=== PATIENT | male | born 1995 | race Caucasian/White ===

== ENCOUNTER 2023-04-21 12:34 | Emergency (ER) | payer OTHER, SELFPAY ==
[2023-04-21 12:45] VITALS: BP 166/101; PULSE 81; RESP 18; TEMP 36.6; O2SAT 100; BMI 16.7
--- NOTE | 2023-04-21 12:48 | ED_ITS ---
HPI - Abdominal Pain General: Chief Complaint: Urogenital-Male Stated Complaint: right sided abdominal pain Time Seen by Provider: 04/21/23 12:41 Source: patient Mode of arrival: ambulatory History of Present Illness: 27-year-old male presents emergency room complaint of abdominal pain. He refers most of the pain to the right flank. He was seen last week and had a CT done showed a kidney stone on the right they gave him Flomax he thinks he recalls being told it was 3 mm in size he thought he had passed it because of pain and sees so he stopped the Flomax his nose began to have pain again. No hematuria no dysuria urgency or frequency. No fever sweats or chills MD elicited complaint: abdominal pain Pertinent past history: kidney stones Onset (ago): minute(s) Pain Consistency: intermittent Location: R flank Severity: mild Quality: sharp Exacerbating factors: nothing Relieving factors: nothing Associated Symptoms: Denies anorexia, belching, bloating, change in bowel habits, change in stool character, chills, coffee ground emesis, constipation, GI cramping, diarrhea, dyspepsia, dysuria, excessive flatus, fever(s), heartburn, hematochezia, hematuria, hematemesis, fecal incontinence, loose stools, melena, nausea, poor appetite, syncope and vomiting Review of Systems Const: Denies: fever(s) or chills Card: Denies: chest pain or syncope Resp: Denies: dyspnea GI: Reports: abdominal pain (Right flank pain); Denies: nausea, vomiting, hematemesis, coffee ground emesis, heartburn, diarrhea, constipation, bloating, GI cramping, belching, excessive flatus, fecal incontinence, change in bowel habits, change in stool character, hematochezia or melena : Reports: flank pain (Right); Denies: dysuria, urinary frequency, urinary urgency or hematuria Musc: Denies: neck pain or back pain Skin/Breast: Denies: rash Physical Exam Const: GENERAL APPEARANCE: cooperative and comfortable ORIENTATION/CONSCIOUSNESS: Yes awake, Yes oriented to person, Yes oriented to place and Yes oriented to time HENMT: COMMON NORMALS: normocephalic, atraumatic and hearing grossly normal bilaterally HEAD & SCALP: normocephalic and atraumatic Resp: COMMON NORMALS: normal respiratory effort, No retractions, No use of accessory muscles and clear to auscultation bilaterally AUSCULTATION: clear to auscultation bilaterally Cardio: COMMON NORMALS: regular rate, regular rhythm and No murmurs present (Cardio) RATE: regular rate RHYTHM: regular rhythm GI: COMMON NORMALS: Soft to palpation and No hepatosplenomegaly present AUSCULTATION: Yes normoactive bowel sounds PALPATION: Yes Soft to palpation, No Tenderness to palpation present (GI), No Guarding due to palpation present (GI) and Yes No hepatosplenomegaly present : BLADDER/KIDNEY EXAM: Yes CVA tenderness Back/Pelvis: GENERAL BACK: Yes CVA tenderness CVA tenderness: right Extremity: COMMON NORMALS: normal to inspection, capillary refill normal, no clubbing, cyanosis or edema, no calf tenderness and no pedal edema Neuro: SENSORIUM/ORIENTATION: Yes oriented to person, Yes oriented to place and Yes oriented to time Skin: COMMON NORMALS: no rashes or lesions noted GENERAL SKIN EXAM: no rashes or lesions noted Course Vital Signs: Vital signs: Vital Signs Temperature 97.8 F 04/21/23 12:45 Pulse Rate 82 04/21/23 15:04 Respiratory Rate 18 04/21/23 12:45 Blood Pressure 116/75 04/21/23 15:04 Pulse Oximetry 93 04/21/23 15:04 Oxygen Delivery Me thod Room Air 04/21/23 12:45 MDM - Abdominal Pain Medical Decision Making Patient reporting he is a same sensation as before this dose KUB there is question very low in the pelvis adjacent bladder looks like it may be the stone. He also has a fair amount of constipation. We will have him return to the [facility] strain the urine. Recheck with urology. We will have appointment made through case management for follow-up with urology. Return if worsens. Differential Diagnosis Likely calculus of kidney and constipation Medical Records I reviewed the patient's medical records. Lab Data I reviewed the patient's lab results. 04/21/23 13:05 04/21/23 13:05 Labs/Radiology: Radiology Impressions KUB X-Ray 04/21/23 13:09 IMPRESSION: 1. Probable constipation. 2. Additional details as above. Laboratory Results WBC 6.71 10^3/uL (3.29-11.43) 04/21/23 13:05 RBC 4.65 10^6/uL (3.85-5.65) 04/21/23 13:05 Hgb 15.10 g/dL (11.27-16.99) 04/21/23 13:05 Hct 44.3 % (37-53) 04/21/23 13:05 MCV 95.3 fl (82-101) 04/21/23 13:05 MCH 32.5 pg (27-33) 04/21/23 13:05 MCHC 34.1 g/dL (30-55) 04/21/23 13:05 RDW 12.0 % (12.1-15.1) L 04/21/23 13:05 Plt Count 248 10^3/cmm (157-399) 04/21/23 13:05 MPV 9.0 fL (7.4-10.4) 04/21/23 13:05 Neut % (Auto) 64.7 % 04/21/23 13:05 Lymph % (Auto) 20.1 % 04/21/23 13:05 [place] % (Auto) 13.3 % 04/21/23 13:05 Eos % (Auto) 0.9 % 04/21/23 13:05 Baso % (Auto) 0.9 % 04/21/23 13:05 Neut # (Auto) 4.34 10^3/uL (1.8-7.7) 04/21/23 13:05 Lymph # (Auto) 1.4 10^3/uL (0.8-4.8) 04/21/23 13:05 [place] # (Auto) 0.9 10^3/uL (0.2-0.9) 04/21/23 13:05 Eos # (Auto) 0.1 10^3/uL (0.0-0.8) 04/21/23 13:05 Baso # (Auto) 0.1 10^3/uL (0.0-0.1) 04/21/23 13:05 Nucleated RBC % (auto) 0 % 04/21/23 13:05 Nucleated RBCs # 0.0 /100WBC 04/21/23 13:05 Sodium 141 mmol/L (136-145) 04/21/23 13:05 Potassium 3.8 mmol/L (3.5-5.1) 04/21/23 13:05 Chloride 103 mmol/L (98-107) 04/21/23 13:05 Carbon Dioxide 27 mmol/L (22-29) 04/21/23 13:05 Anion Gap 14.8 (5-19) 04/21/23 13:05 BUN 16 mg/dL (6-20) 04/21/23 13:05 Creatinine 1.0 mg/dL (0.7-1.2) 04/21/23 13:05 GFR Calculation 88.3 mL/min (90-130) L 04/21/23 13:05 Glucose 106 mg/dL (65-115) 04/21/23 13:05 Calculated Osmolality 294 mOsm/kg (285-295) 04/21/23 13:05 Calcium 9.9 mg/dL (8.5-10.5) 04/21/23 13:05 Total Bilirubin 1.0 mg/dL (0.15-1.2) 04/21/23 13:05 AST 19 U/L (0-40) 04/21/23 13:05 ALT 15 U/L (0-41) 04/21/23 13:05 Alkaline Phosphatase 79 U/L (40-130) 04/21/23 13:05 Total Protein 7.8 g/dL (6.6-8.7) 04/21/23 13:05 Albumin 4.8 g/dL (3.5-5.2) 04/21/23 13:05 Globulin 3.0 g/dL (1.3-4.6) 04/21/23 13:05 Lipase 76 U/L (13-60) H 04/21/23 13:05 Urine Color Yellow (Yellow) 04/21/23 13:43 Urine Appearance Cloudy (CLEAR) A 04/21/23 13:43 Urine pH 8 (5-7) H 04/21/23 13:43 Ur Specific [place] 1.015 (1.005-1.030) 04/21/23 13:43 Urine Protein Neg (Negative) 04/21/23 13:43 Urine Glucose (UA) Norm (Normal) 04/21/23 13:43 Urine Ketones Negative (Negative) 04/21/23 13:43 Urine Blood Neg (Negative) 04/21/23 13:43 Urine Nitrate Negative (Negative) 04/21/23 13:43 Urine Bilirubin Neg (Negative) 04/21/23 13:43 Prot Sulfosalicylic Acd Negative (Negative) 04/21/23 13:43 Urine Urobilinogen Norm mg/dL (Negative) 04/21/23 13:43 Ur Leukocyte Esterase Negative (Negative) 04/21/23 13:43 Urine RBC None /hpf (0-2) 04/21/23 13:43 Urine WBC None /hpf (0-5) 04/21/23 13:43 Ur Squamous Epith Cells None /hpf (0-5) 04/21/23 13:43 Amorphous Sediment 3+ /hpf 04/21/23 13:43 Urine Bacteria None /hpf (NONE) 04/21/23 13:43 All radiology interpretation(s) finalized by discharge Discharge Plan Discharge Patient Disposition: Home Clinical Impression: Right nephrolithiasis, Constipation Condition: Stable Prescriptions: New hydrocodone-acetaminophen 5-325 mg tablet 1 tab PO Q6H PRN (Reason: pain) Qty: 15 0RF Flomax 0.4 mg capsule 0.4 mg PO DAILY Qty: 14 0RF Discharge Orders: Discharge ED (Routine); Ordered 04/21/23 Ordered By: Blade Boston Discharge Diet: Usual diet Discharge Activity: Resume usual activity Patient Instructions: Opioid Safety, Pain Management Coding Level of Care Code ED Process Analyst for Ramona Do
[2023-04-21 13:09] LABS: Basophils # 0.1 10^3/uL (0.0-0.1); Basophils % 0.9 %; Eosinophils # 0.1 10^3/uL (0.0-0.8); Eosinophils % 0.9 %; Hematocrit 44.3 % (37-53); Lymphocytes # 1.4 10^3/uL (0.8-4.8); Lymphocytes % 20.1 %; Mean Corpuscular HGB Conc 34.1 g/dL (30-55); Mean Corpuscular Hemoglobin 32.5 pg (27-33); Mean Corpuscular Volume 95.3 fl (82-101); Monocytes # 0.9 10^3/uL (0.2-0.9); Monocytes % 13.3 %; Neutrophils # 4.34 10^3/uL (1.8-7.7); Neutrophils % 64.7 %; Nucleated Red Blood Cells % 0 %; Platelet Count 248 10^3/cmm (157-399); Red Blood Count 4.65 10^6/uL (3.85-5.65); White Blood Count 6.71 10^3/uL (3.29-11.43)
--- NOTE | 2023-04-21 13:09 | XRR_ITS ---
PROCEDURE INFORMATION: Exam: XR Abdomen Exam date and time: 04/21/2023 1:26 PM Age: 27 years old Clinical indication: Condition or disease; Kidney or ureter condition; Other: R nephrolithiasis TECHNIQUE: Imaging protocol: Radiologic exam of the abdomen. Views: Frontal supine view of the abdomen. 1 View. COMPARISON: No relevant prior studies available. FINDINGS: Gastrointestinal tract: There is no obvious bowel obstruction or free air on this plain radiographic examination with the patient in the supine position. Moderate amount of stool throughout the colon suggests constipation. Bones/joints: Mild osteoarthritis both hips. Mild scoliosis. XR/XR KUB portable [id number] IMPRESSION: 1. Probable constipation. 2. Additional details as above.
[2023-04-21 13:29] LABS: Alanine Aminotransferase 15 U/L (0-41); Albumin Level 4.8 g/dL (3.5-5.2); Alkaline Phosphatase 79 U/L (40-130); Anion Gap 14.8 (5-19); Aspartate Amino Transferase 19 U/L (0-40); Blood Urea Nitrogen 16 mg/dL (6-20); Calcium 9.9 mg/dL (8.5-10.5); Carbon Dioxide 27 mmol/L (22-29); Chloride 103 mmol/L (98-107); Glomerular Filtration Rate 88.3 mL/min (90-130); Glucose 106 mg/dL (65-115); Lipase 76 U/L (13-60); Osmolality Calculated 294 mOsm/kg (285-295); Potassium 3.8 mmol/L (3.5-5.1); Sodium 141 mmol/L (136-145); Total Protein 7.8 g/dL (6.6-8.7)
[2023-04-21] MEDS: sodium chloride 0.9% 1,000 ML 999 ML IV (13:52)
[2023-04-21] MEDS: ketorolac 30 mg/mL INJ IVP (13:52)
[2023-04-21 14:33] LABS: Add Urine Microscopic? YES; Bilirubin Urine Neg (Negative); Blood Urine Neg (Negative); Glucose Urine UA Norm (Normal); Ketones Urine Negative (Negative); Leukocyte Esterase Urine Negative (Negative); Nitrate Urine Negative (Negative); Protein Urine Neg (Negative); Specific Gravity, Urine 1.015 (1.005-1.030); Sulfosalicylic Acid Urine Negative (Negative); Urine Appearance Cloudy (CLEAR); Urine Color Yellow (Yellow); Urobilinogen Urine Norm (Negative); pH Urine 8 (5-7)
[2023-04-21 14:34] LABS: Amorphous Sediment Urine 3+ /hpf
[2023-04-21 15:04] VITALS: BP 116/75; PULSE 82; O2SAT 93
== END 2023-04-21 14:55 | disposition home or self-care (01) ==
PROVIDERS: Emergency Provider Family Medicine
DX: N20.0 Calculus of kidney (principal); K59.00 Constipation, unspecified
CPT/HCPCS: 36415; 74018; 80053; 81001; 83690; 85025; 96374; 99284; J1885; J7030